=== PATIENT | female | born 1950 | race Caucasian/White ===

== ENCOUNTER 2020-03-24 13:00 | Outpatient (CLI) | payer OTHER | END 2020-03-24 13:07 | disposition home or self-care (01) | LOC: RAD 13:00 | PROVIDERS: ATTEND Physical Medicine & Rehabilitation | DX: M16.11 Unilateral primary osteoarthritis, right hip (principal) ==

== ENCOUNTER 2020-05-21 12:43 | Outpatient (CLI) | payer OTHER | END 2020-05-21 12:47 | disposition home or self-care (01) | LOC: RAD 12:43 | PROVIDERS: ATTEND Physical Medicine & Rehabilitation | DX: L03.115 Cellulitis of right lower limb (principal); M79.641 Pain in right hand ==

== ENCOUNTER 2020-07-29 14:42 | Outpatient (CLI) | payer OTHER | END 2020-07-29 14:46 | disposition home or self-care (01) | LOC: RAD 14:42 | PROVIDERS: ATTEND Physical Medicine & Rehabilitation | DX: M54.6 Pain in thoracic spine (principal); M54.5 Low back pain ==

== ENCOUNTER 2021-02-26 13:24 | Outpatient (CLI) | payer OTHER | END 2021-02-26 13:35 | disposition home or self-care (01) | LOC: MRI 13:24 | DX: F03.90 Unspecified dementia, unspecified severity, without behavioral disturbance, psychotic disturbance, mood disturbance, and anxiety (principal); I11.9 Hypertensive heart disease without heart failure | CPT/HCPCS: 70551 ==

== ENCOUNTER → 2021-03-12 | Outpatient (CLI) | payer OTHER | END | disposition home or self-care (01) | LOC: MAMO-SONO 12:50 | PROVIDERS: ATTEND Internal Medicine | DX: Z12.31 Encounter for screening mammogram for malignant neoplasm of breast (principal); Z87.898 Personal history of other specified conditions; D24.1 Benign neoplasm of right breast; D24.2 Benign neoplasm of left breast ==

== ENCOUNTER 2021-11-24 11:22 | Outpatient (CLI) | payer OTHER | END 2021-11-24 11:31 | disposition home or self-care (01) | LOC: RAD 11:22 | PROVIDERS: ATTEND Physical Medicine & Rehabilitation | DX: M17.11 Unilateral primary osteoarthritis, right knee (principal); M17.12 Unilateral primary osteoarthritis, left knee; M54.50 Low back pain, unspecified ==

== ENCOUNTER 2021-12-31 09:07 | Outpatient (CLI) | payer OTHER | END 2021-12-31 09:08 | disposition home or self-care (01) | LOC: MRI 09:07 → TOM 09:07 → MRI 09:08 → TOM 09:08 | PROVIDERS: ATTEND Obstetrics & Gynecology | DX: G44.219 Episodic tension-type headache, not intractable (principal); R42 Dizziness and giddiness | CPT/HCPCS: 70551 ==

== ENCOUNTER 2022-03-30 07:36 | Outpatient (CLI) | payer OTHER | END 2022-03-30 07:41 | disposition home or self-care (01) | LOC: MRI 07:36 | PROVIDERS: ATTEND Anesthesiology Pain Medicine | DX: M54.50 Low back pain, unspecified (principal); M47.896 Other spondylosis, lumbar region | CPT/HCPCS: 72148 ==

== ENCOUNTER 2022-04-26 12:37 | Outpatient (CLI) | payer OTHER | END 2022-04-26 12:38 | disposition home or self-care (01) | LOC: NUCLEAR 12:37 | PROVIDERS: ATTEND Obstetrics & Gynecology | DX: M81.0 Age-related osteoporosis without current pathological fracture (principal) ==

== ENCOUNTER → 2022-05-04 | Outpatient (CLI) | payer OTHER | END | disposition home or self-care (01) | LOC: MAMO-SONO 08:38 | PROVIDERS: ATTEND Obstetrics & Gynecology | DX: Z12.31 Encounter for screening mammogram for malignant neoplasm of breast (principal); N64.4 Mastodynia ==

== ENCOUNTER 2023-05-25 10:25 | Outpatient (CLI) | payer OTHER | END 2023-05-25 10:41 | disposition home or self-care (01) | LOC: MAMO-SONO 10:25 | PROVIDERS: ATTEND Internal Medicine | DX: Z12.31 Encounter for screening mammogram for malignant neoplasm of breast (principal); D24.1 Benign neoplasm of right breast; D24.2 Benign neoplasm of left breast; R92.0 Mammographic microcalcification found on diagnostic imaging of breast; N63.0 Unspecified lump in unspecified breast ==

== ENCOUNTER 2023-06-06 08:08 | Outpatient (CLI) | payer OTHER | END 2023-06-06 08:16 | disposition home or self-care (01) | LOC: MRI 08:08 | PROVIDERS: ATTEND Anesthesiology Pain Medicine | DX: M54.59 Other low back pain (principal); M47.896 Other spondylosis, lumbar region | CPT/HCPCS: 72148 ==

== ENCOUNTER 2023-06-22 12:47 | Outpatient (CLI) | payer OTHER | END 2023-06-22 12:48 | disposition home or self-care (01) | LOC: RAD 12:47 | PROVIDERS: ATTEND Physical Medicine & Rehabilitation | DX: M25.561 Pain in right knee (principal) ==

== ENCOUNTER 2024-06-06 13:41 | Outpatient (CLI) | payer OTHER | END 2024-06-06 13:48 | disposition home or self-care (01) | LOC: MAMO-SONO 13:41 | PROVIDERS: ATTEND Internal Medicine | DX: D24.1 Benign neoplasm of right breast (principal); D24.2 Benign neoplasm of left breast; R92.0 Mammographic microcalcification found on diagnostic imaging of breast; Z12.31 Encounter for screening mammogram for malignant neoplasm of breast ==

== ENCOUNTER 2024-09-18 10:39 | Outpatient (CLI) | payer OTHER | END 2024-09-18 10:40 | disposition home or self-care (01) | LOC: RAD 10:39 | PROVIDERS: ATTEND Internal Medicine | DX: M51.87 Other intervertebral disc disorders, lumbosacral region (principal); M54.32 Sciatica, left side ==

== ENCOUNTER 2025-05-28 11:13 | Outpatient (CLI) | payer OTHER | END 2025-05-28 11:15 | disposition home or self-care (01) | LOC: RAD 11:13 | PROVIDERS: ATTEND Internal Medicine | DX: M51.87 Other intervertebral disc disorders, lumbosacral region (principal) ==